=== PATIENT | female | born 1960 | race Caucasian/White ===

== ENCOUNTER 2019-10-05 18:54 | Emergency (ER) | payer MEDICARE, OTHER, SELFPAY ==
[2019-10-05] VITALS (7 sets, daily range): BP systolic 120–193; BP diastolic 72–146; PULSE 65–100; RESP 16–20; TEMP 35.7–37.1; O2SAT 95–99; BMI 37.8
[2019-10-05 19:25] LABS: Basophils # 0.1 10^3/uL (0.0-0.1); Basophils % 0.5 %; Eosinophils # 0.1 10^3/uL (0.0-0.8); Eosinophils % 0.8 %; Hemoglobin 15.4 g/dL (11.5-15.3); Lymphocytes # 1.9 10^3/uL (0.8-4.8); Lymphocytes % 19.4 %; Mean Corpuscular HGB Conc 33.5 g/dL (30.0-36.0); Mean Corpuscular Hemoglobin 35.6 pg (28.0-34.0); Mean Corpuscular Volume 106.2 fL (81-99); Mean Platelet Volume 9.4 fL (7.4-10.4); Monocytes # 0.6 10^3/uL (0.2-0.9); Monocytes % 6.2 %; Neutrophils # 7.1 10^3/uL (1.8-7.7); Neutrophils % 72.7 %; Nucleated Red Blood Cells % 0 %; Platelet Count 229 10^3/cmm (130-400); Red Blood Count 4.33 10^6/uL (4.1-5.3); Red Cell Distribution Width 12.8 % (12.1-15.1); White Blood Count 9.8 10^3/uL (4.0-10.0)
[2019-10-05 19:40] LABS: Alanine Aminotransferase 30 U/L (0-33); Albumin Level 3.9 g/dL (3.5-5.2); Alkaline Phosphatase 210 IU/L (35-105); Anion Gap 15.7 (5-19); Aspartate Amino Transferase 38 U/L (0-32); Blood Urea Nitrogen 14 mg/dL (8-23); Calcium 8.7 mg/dL (8.5-10.5); Carbon Dioxide 25 mmol/L (22-29); Chloride 97 mmol/L (98-107); Globulin 3.1 g/dL (1.3-4.6); Glucose 129 mg/dL (65-115); Lipase 263 U/L (13-60); Osmolality Calculated 276 mOsm/kg (285-295); Potassium 3.7 mmol/L (3.5-5.1); Sodium 134 mmol/L (136-145); Total Bilirubin 0.9 mg/dL (0.15-1.2)
--- NOTE | 2019-10-05 20:07 | CTR_ITS ---
PROCEDURE INFORMATION: Exam: CT Abdomen And Pelvis With Contrast Exam date and time: 10/05/2019 9:16 PM Age: 58 years old Clinical indication: Nausea and other: Diarrhea; Abdominal pain; Prior surgery; Surgery type: Appy, gb, hysto, ; Additional info: Pain, elevated lipase TECHNIQUE: Imaging protocol: Computed tomography of the abdomen and pelvis with intravenous contrast. Radiation optimization: All CT scans at this facility use at least one of these dose optimization techniques: automated exposure control; mA and/or kV adjustment per patient size (includes targeted exams where dose is matched to clinical indication); or iterative reconstruction. Contrast material: OMNI 300; Contrast volume: 95 ml; Contrast route: IV; COMPARISON: No relevant prior studies available. RADIATION DOSE METRICS: Total DLP: 1601.58 mGy-cm FINDINGS: Liver: There is no focal abnormality within the liver. There is a diffuse decrease in hepatic parenchymal density, consistent with mild fatty infiltration. Gallbladder and bile ducts: There has been a cholecystectomy. Pancreas: There is edema involving the head of the pancreas and there is some peripancreatic fluid around the pancreatic head consistent with focal pancreatitis. There is a collection of air in fluid inferior to the pancreatic head and adjacent to the duodenal C loop, most likely a duodenal diverticulum Spleen: The spleen is normal. Adrenals: The adrenal glands are normal. Kidneys and ureters: The kidneys are normal. There is no evidence of renal or ureteral calcifications. There is no evidence of hydronephrosis. Stomach and bowel: There is no evidence of colitis/diverticulitis. Appendix: Not identified Intraperitoneal space: There is no evidence of free intraperitoneal fluid. Vasculature: Unremarkable. No abdominal aortic aneurysm. Lymph nodes: Unremarkable. No enlarged lymph nodes. Bladder: Unremarkable as visualized. Reproductive: There has been a hysterectomy. Bones/joints: The lumbar spine demonstrates mild degenerative changes at multiple levels. There is mild compression deformity of T12 which appears represent old osteoporotic compression fracture. There is S shaped scoliosis of the lumbar spine. Soft tissues: Unremarkable. CT/CT abdomen pelvis w con* [id number] IMPRESSION: 1. Acute pancreatitis 2. Duodenal diverticulum 3. Fatty liver Radiation Dose CTDIVOL = (mGy): DLP = 1601.58 (mGy-cm)
--- NOTE | 2019-10-05 20:42 | W.ED.ABDPA2 ---
HPI - Abdominal Pain General: Chief Complaint: Abdominal Pain Stated Complaint: abd pain Time Seen by Provider: 10/05/19 20:35 History of Present Illness: HPI narrative: Patient complains about abdominal pain since January she is scheduled see Dr. Linton and get a EGD done and a colonoscopy. She complains about upper epigastric pain that radiates to the right upper side she has had her gallbladder removed Dr. Linton was thinking maybe she possibly has an ulcer patient that she is had pain today and has been nauseous has not take any medication MD elicited complaint: abdominal pain Onset (ago): month(s) Pain Consistency: intermittent Location: Epigastric Severity: moderate Quality: stabbing Radiation: RUQ Exacerbating factors: nothing Relieving factors: nothing Associated Symptoms: Reports heartburn and nausea; Denies chills and fever(s) Review of Systems Const: Denies: fever(s), chills or body aches Eyes: Denies: change in vision or blurry vision ENMT: Denies: throat pain or nasal congestion Card: Denies: chest pain or dyspnea on exertion Resp: Denies: dyspnea, productive cough or non-productive cough GI: Reports: abdominal pain, nausea and heartburn Musc: Denies: extremity pain Skin/Breast: Denies: rash Neuro: Denies: headache(s) Psych: Denies: anxiety or depression Jasbir/Lymph: Denies: easy bruising PFSH ED PFSH: Social History Smoking and tobacco status: current every day smoker Physical Exam Const: COMMON NORMALS: no acute distress, average body habitus and patient oriented x3 HENMT: COMMON NORMALS: normocephalic HEAD & SCALP: normal to inspection and normocephalic FACE & SINUS: normal facial exam Eye: COMMON NORMALS: conjunctivae normal GENERAL EYE: appearance normal, both eyes and all related structures CONJUNCTIVA: Yes conjunctivae normal Neck/C-Spine: COMMON NORMALS: no JVD Chest: COMMONS NORMALS: normal inspection of the chest Resp: COMMON NORMALS: normal respiratory effort and clear to auscultation bilaterally AUSCULTATION: clear to auscultation bilaterally Cardio: COMMON NORMALS: no JVD, regular rate and regular rhythm RATE: regular rate RHYTHM: regular rhythm GI: COMMON NORMALS: Normal to inspection, nondistended, normoactive bowel sounds present PALPATION: Yes Tenderness to palpation present (GI) Details: other (Epigastric) Extremity: COMMON NORMALS: normal to inspection and full ROM Neuro: COMMON NORMALS: patient oriented x3 Course Vital Signs: Vital signs: Vital Signs Temperature 96.3 F L 10/05/19 18:56 Pulse Rate 100 10/05/19 18:56 Respiratory Rate 18 10/05/19 18:56 Blood Pressure 152/100 10/05/19 18:56 Pulse Oximetry 95 10/05/19 18:56 MDM - Abdominal Pain Lab Data: Labs: Lab Results 10/05/19 10/05/19 Range/Units 19:18 19:18 WBC 9.8 (4.0-10.0) 10^3/ uL RBC 4.33 (4.1-5.3) 10^6/u L Hgb 15.4 H (11.5-15.3) g/dL Hct 46.0 (37.0-47.0) % MCV 106.2 H (81-99) fL MCH 35.6 H (28.0-34.0) pg MCHC 33.5 (30.0-36.0) g/dL RDW 12.8 (12.1-15.1) % Plt Count 229 (130-400) 10^3/c mm MPV 9.4 (7.4-10.4) fL Neut % (Auto) 72.7 % Lymph % (Auto) 19.4 % [place] % (Auto) 6.2 % Eos % (Auto) 0.8 % Baso % (Auto) 0.5 % Neut # (Auto) 7.1 (1.8-7.7) 10^3/u L Lymph # (Auto) 1.9 (0.8-4.8) 10^3/u L [place] # (Auto) 0.6 (0.2-0.9) 10^3/u L Eos # (Auto) 0.1 (0.0-0.8) 10^3/u L Baso # (Auto) 0.1 (0.0-0.1) 10^3/u L Nucleated RBC % (a uto) 0 % Nucleated RBCs # 0.0 /100WBC Sodium 134 L (136-145) mmol/L Potassium 3.7 (3.5-5.1) mmol/L Chloride 97 L (98-107) mmol/L Carbon Dioxide 25 (22-29) mmol/L Anion Gap 15.7 (5-19) BUN 14 (8-23) mg/dL Creatinine 0.6 (0.5-0.9) mg/dL GFR Calculation 102.0 (90-130) mL/min Glucose 129 H (65-115) mg/dL Calculated Osmolal ity 276 L (285-295) mOsm/k g Calcium 8.7 (8.5-10.5) mg/dL Total Bilirubin 0.9 (0.15-1.2) mg/dL AST 38 H (0-32) U/L ALT 30 (0-33) U/L Alkaline Phosphata se 210 H (35-105) IU/L Total Protein 7.0 (6.6-8.7) g/dL Albumin 3.9 (3.5-5.2) g/dL Globulin 3.1 (1.3-4.6) g/dL Lipase 263 H (13-60) U/L Coding Level of Care Code ED Section Housekeeper for Chg Juan Carlos
[2019-10-05] MEDS: lidocaine 2% viscous 15 ML, aluminum-mag hydrox-simethicon 30 ML, sucralfate oral liq 1 GM PO (20:55)
[2019-10-05] MEDS: ondansetron 4 MG Tablet PO (20:55)
--- NOTE | 2019-10-05 21:07 | PC.NURSE ---
Pt. ambulatory to bathroom without assist. Gait stable
[2019-10-05] MEDS: morphine 4 mg/mL SDV 1 mL IM (21:33)
[2019-10-05] MEDS: iohexol 300 mg/mL 100 mL Btl IV (22:20)
[2019-10-05 22:32] LABS: Bilirubin Urine Neg (NEGATIVE); Blood Urine Neg (Negative); Glucose Urine UA Norm (Normal); Ketones Urine Negative (Negative); Leukocyte Esterase Urine Negative (Negative); Mucus Urine 3+; Nitrate Urine Negative (Negative); Protein Urine Neg (Negative); RBC Urine 0-4 /hpf (0-2); Urine Appearance Cloudy (CLEAR); Urine Color Yellow (Yellow); Urobilinogen Urine Norm (Negative); pH Urine 5 (5-7)
[2019-10-05 22:33] LABS: Bacteria Urine 1+
[2019-10-05] MEDS: metoprolol tartrate 1 mg/1 mL SDV 5 mL 5 MG IV (23:41)
[2019-10-05] MEDS: morphine 4 mg/mL SDV 1 mL IVP (23:42)
--- NOTE | 2019-10-06 00:22 | PC.NURSE ---
IV removed intact. Pressure dressing in place.
[2019-10-06 00:23] VITALS: BP 198/133; PULSE 60; RESP 17; O2SAT 95
== END 2019-10-06 00:24 | disposition home or self-care (01) ==
PROVIDERS: Emergency Medicine; Emergency Provider Nurse Practitioner Family; PCP Family Medicine
DX: R10.9 Unspecified abdominal pain (principal); F17.210 Nicotine dependence, cigarettes, uncomplicated
CPT/HCPCS: 12345; 36415; 74177; 80053; 81001; 83690; 85025; 96374; 96375; 99283; 99284; A9270; J2270; J3490; Q0162; Q9967

== ENCOUNTER 2020-02-02 15:06 | Emergency (ER) | payer MEDICARE, OTHER, SELFPAY ==
[2020-02-02 15:12] VITALS: PULSE 104; RESP 18; TEMP 36.4; O2SAT 99; BMI 36.6
[2020-02-02 16:22] LABS: Alanine Aminotransferase 93 U/L (0-33); Albumin Level 3.7 g/dL (3.5-5.2); Alkaline Phosphatase 130 IU/L (35-105); Anion Gap 15.5 (5-19); Aspartate Amino Transferase 73 U/L (0-32); Blood Urea Nitrogen 17 mg/dL (8-23); Calcium 9.5 mg/dL (8.5-10.5); Carbon Dioxide 27 mmol/L (22-29); Chloride 94 mmol/L (98-107); Globulin 3.5 g/dL (1.3-4.6); Glomerular Filtration Rate 50.5 mL/min (90-130); Glucose 126 mg/dL (65-115); Lipase 130 U/L (13-60); Osmolality Calculated 279 mOsm/kg (285-295); Potassium 3.5 mmol/L (3.5-5.1); Sodium 133 mmol/L (136-145); Total Protein 7.2 g/dL (6.6-8.7)
[2020-02-02 16:24] LABS: Creatinine Clr Calc Pharmacy 60.5927
--- NOTE | 2020-02-02 16:32 | CTR_ITS ---
PROCEDURE INFORMATION: Exam: CT Abdomen And Pelvis With Contrast Exam date and time: 02/02/2020 5:02 PM Age: 59 years old Clinical indication: Nausea and vomiting and other: Diarrhea; Abdominal pain; Prior surgery; Surgery type: Appy, gb, , hyst; Additional info: Abd pain TECHNIQUE: Imaging protocol: Computed tomography of the abdomen and pelvis with intravenous contrast. Radiation optimization: All CT scans at this facility use at least one of these dose optimization techniques: automated exposure control; mA and/or kV adjustment per patient size (includes targeted exams where dose is matched to clinical indication); or iterative reconstruction. Contrast material: VISI 320; Contrast volume: 95 ml; Contrast route: INTRAVENOUS (IV); COMPARISON: CT abdomen pelvis w con* [id number] 10/05/2019 10:11 PM RADIATION DOSE METRICS: Total DLP (mGy-cm): 1332.26 FINDINGS: Liver: Normal. No mass. Gallbladder and bile ducts: Cholecystectomy. Mild prominence of the bile ducts is most likely reservoir effect. Pancreas: Normal. No ductal dilation. Spleen: Normal. No splenomegaly. Adrenals: Normal. No mass. Kidneys and ureters: Normal. No hydronephrosis. Stomach and bowel: Duodenal diverticulum. Remainder of the small bowel and colon and stomach are unremarkable. Appendix: The appendix is absent. Intraperitoneal space: Unremarkable. No free air. No significant fluid collection. Vasculature: Unremarkable. No abdominal aortic aneurysm. Lymph nodes: Unremarkable. No enlarged lymph nodes. Urinary bladder: Unremarkable as visualized. Reproductive: The uterus and ovaries are absent. Bones/joints: Scoliosis and degenerative changes. Mild T12 compression fracture is unchanged. No acute fracture. Soft tissues: Unremarkable. CT/CT abdomen pelvis w con* [id number] IMPRESSION: 1. No acute abnormality identified in the abdomen or pelvis. Radiation Dose CTDIVOL = (mGy): DLP = 1332.26 (mGy-cm)
--- NOTE | 2020-02-02 16:43 | W.ED.ABDPA2 ---
HPI - Abdominal Pain General: Chief Complaint: Abdominal Pain Stated Complaint: Stomach pain Time Seen by Provider: 02/02/20 16:06 Source: patient Mode of arrival: ambulatory Limitations: no limitations History of Present Illness: HPI narrative: 59-year-old female states she has been having right sided abdominal pain over the last 2 days. She states that sharp in nature and rates it a 6 out of 10. States she does have a history of pancreatitis and this feels similar. She had some nausea no vomiting. Denies any fevers. Denies any diarrhea. Denies any worsening or improving factors. MD elicited complaint: abdominal pain Associated Symptoms: Reports nausea; Denies chills, dysuria and fever(s) Review of Systems Const: Denies: fever(s), chills, body aches or change in appetite Eyes: Denies: blurry vision or eye discomfort ENMT: Denies: throat pain or dental pain Card: Denies: chest pain Resp: Denies: dyspnea GI: Reports: abdominal pain and nausea : Denies: dysuria Musc: Denies: neck pain or back pain Skin/Breast: Denies: rash Neuro: Denies: headache(s) Psych: Denies: depression Jasbir/Lymph: Denies: easy bruising All/Imm: Denies: urticaria PFSH ED PFSH: Social History Smoking and tobacco status: current every day smoker Physical Exam Const: COMMON NORMALS: no acute distress, patient oriented x3 and healthy appearing HENMT: COMMON NORMALS: normocephalic and atraumatic HEAD & SCALP: normocephalic and atraumatic Eye: COMMON NORMALS: Equal, round and reactive pupils present and EOMs intact bilaterally PUPIL: Yes Equal, round and reactive pupils present Neck/C-Spine: COMMON NORMALS: full ROM and supple Chest: COMMONS NORMALS: normal inspection of the chest and normal palpation of entire chest wall Resp: COMMON NORMALS: normal respiratory effort, No retractions, No use of accessory muscles and clear to auscultation bilaterally AUSCULTATION: clear to auscultation bilaterally Cardio: COMMON NORMALS: regular rate, regular rhythm and No murmurs present (Cardio) RATE: regular rate RHYTHM: regular rhythm GI: COMMON NORMALS: Normal to inspection, nondistended, normoactive bowel sounds present, Soft to palpation and no masses PALPATION: Yes Soft to palpation OTHER: mild diffuse tenderness Extremity: COMMON NORMALS: normal to inspection and full ROM Neuro: COMMON NORMALS: patient oriented x3, moves all extremities and no focal motor deficits Psych: COMMON NORMALS: mental status grossly normal, Normal thought process present and cooperative THOUGHT PROCESS: Normal thought process present Skin: COMMON NORMALS: no rashes or lesions noted and no wounds GENERAL SKIN EXAM: no rashes or lesions noted Course Vital Signs: Vital signs: Vital Signs Temperature 97.6 F 02/02/20 15:12 Pulse Rate 89 02/02/20 18:45 Respiratory Rate 18 02/02/20 18:45 Blood Pressure 138/75 02/02/20 18:45 Pulse Oximetry 99 02/02/20 18:45 MDM - Abdominal Pain MDM Narrative: Medical decision making narrative: 59-year-old female presented here with abdominal pain. Patient's blood work and CT abdomen are all normal. She is well-appearing here and pain is improved. She has no signs of acute surgical abdomen. Patient is to follow-up with her PCP in 2 to 4 days and return if worsening. She understands and agrees to plan. Lab Data: Labs: Lab Results 02/02/20 02/02/20 02/02/20 Range/Units 15:42 15:42 16:45 WBC 8.7 (4.0-10.0) 10^3/ uL RBC 4.49 (4.1-5.3) 10^6/u L Hgb 15.8 H (11.5-15.3) g/dL Hct 47.8 H (37.0-47.0) % MCV 106.5 H (81-99) fL MCH 35.2 H (28.0-34.0) pg MCHC 33.1 (30.0-36.0) g/dL RDW 12.9 (12.1-15.1) % Plt Count 256 (130-400) 10^3/c mm MPV 10.3 (7.4-10.4) fL Neut % (Auto) 57.4 % Lymph % (Auto) 32.3 % [place] % (Auto) 8.1 % Eos % (Auto) 1.4 % Baso % (Auto) 0.5 % Neut # (Auto) 4.97 (1.8-7.7) 10^3/u L Lymph # (Auto) 2.8 (0.8-4.8) 10^3/u L [place] # (Auto) 0.7 (0.2-0.9) 10^3/u L Eos # (Auto) 0.1 (0.0-0.8) 10^3/u L Baso # (Auto) 0.0 (0.0-0.1) 10^3/u L Nucleated RBC % (a uto) 0 % Nucleated RBCs # 0.0 /100WBC Sodium 133 L (136-145) mmol/L Potassium 3.5 (3.5-5.1) mmol/L Chloride 94 L (98-107) mmol/L Carbon Dioxide 27 (22-29) mmol/L Anion Gap 15.5 (5-19) BUN 17 (8-23) mg/dL Creatinine 1.1 H (0.5-0.9) mg/dL GFR Calculation 50.5 L (90-130) mL/min Glucose 126 H (65-115) mg/dL Calculated Osmolal ity 279 L (285-295) mOsm/k g Calcium 9.5 (8.5-10.5) mg/dL Total Bilirubin 1.0 (0.15-1.2) mg/dL AST 73 H (0-32) U/L ALT 93 H (0-33) U/L Alkaline Phosphata se 130 H (35-105) IU/L Total Protein 7.2 (6.6-8.7) g/dL Albumin 3.7 (3.5-5.2) g/dL Globulin 3.5 (1.3-4.6) g/dL Lipase 130 H (13-60) U/L Urine Color Yellow (Yellow) Urine Appearance Cloudy (CLEAR) Urine pH 5 (5-7) Ur Specific Gravit y 1.025 (1.005-1.030) Urine Protein 1+ H (Negative) Urine Glucose (UA) Norm (Normal) Urine Ketones 1+ H (Negative) Urine Blood Neg (Negative) Urine Nitrate Negative (Negative) Urine Bilirubin 2+ H (Negative) Urine Urobilinogen 8 H (Negative) mg/dL Ur Leukocyte Tanisha ase Trace H (Negative) Urine RBC 0-4 H (0-2) /hpf Urine WBC 0-4 H (0-5) /hpf Ur Squamous Epith Cells 25-40 H (0-5) /hpf Amorphous Sediment 1+ /hpf Urine Bacteria 1+ H (NONE) /hpf Hyaline Casts >100 H /lpf Fine Granular Cast s 0-4 H /lpf Coarse Granular Ca sts 0-4 H /lpf Imaging Data ^: CT Abd/Pel: Radiologist's impression: [id number] Order #: [id number] Report Status: Finalized Reason: [place] [address] CT Scan Report Signed Patient: Lissett Beck Unit #: [id number] : 1960 Age/Sex: 59 / F ADM Date: 02/02/20 Loc: ER Room/Bed: Attending Dr: Ordering Provider/Ordering MD: Mario Swanson MD Date of Service: 02/02/20 Procedure(s): CT abdomen pelvis w con* [id number] Accession Number(s): [id number] Report Number: [id number] PROCEDURE INFORMATION: Exam: CT Abdomen And Pelvis With Contrast Exam date and time: 02/02/2020 5:02 PM Age: 59 years old Clinical indication: Nausea and vomiting and other: Diarrhea; Abdominal pain; Prior surgery; Surgery type: Appy, gb, , hyst; Additional info: Abd pain TECHNIQUE: Imaging protocol: Computed tomography of the abdomen and pelvis with intravenous contrast. Radiation optimization: All CT scans at this facility use at least one of these dose optimization techniques: automated exposure control; mA and/or kV adjustment per patient size (includes targeted exams where dose is matched to clinical indication); or iterative reconstruction. Contrast material: VISI 320; Contrast volume: 95 ml; Contrast route: INTRAVENOUS (IV); COMPARISON: CT abdomen pelvis w con* [id number] 10/05/2019 10:11 PM RADIATION DOSE METRICS: Total DLP (mGy-cm): 1332.26 FINDINGS: Liver: Normal. No mass. Gallbladder and bile ducts: Cholecystectomy. Mild prominence of the bile ducts is most likely reservoir effect. Pancreas: Normal. No ductal dilation. Spleen: Normal. No splenomegaly. Adrenals: Normal. No mass. Kidneys and ureters: Normal. No hydronephrosis. Stomach and bowel: Duodenal diverticulum. Remainder of the small bowel and colon and stomach are unremarkable. Appendix: The appendix is absent. Intraperitoneal space: Unremarkable. No free air. No significant fluid collection. Vasculature: Unremarkable. No abdominal aortic aneurysm. Lymph nodes: Unremarkable. No enlarged lymph nodes. Urinary bladder: Unremarkable as visualized. Reproductive: The uterus and ovaries are absent. Bones/joints: Scoliosis and degenerative changes. Mild T12 compression fracture is unchanged. No acute fracture. Soft tissues: Unremarkable. CT/CT abdomen pelvis w con* [id number] IMPRESSION: 1. No acute abnormality identified in the abdomen or pelvis. Discharge Plan Discharge Patient Disposition: Home Clinical Impression: Abdominal pain Qualifiers: Abdominal location: generalized Qualified Code(s): R10.84 - Generalized abdominal pain Condition: Stable Prescriptions: New Zofran 4 mg tablet 4 mg PO QID PRN (Reason: nausea and vomiting) Qty: 14 RF: 0 dicyclomine 20 mg tablet 20 mg PO TID PRN (Reason: abdominal pain) Qty: 20 RF: 0 No Action lisinopril 20 mg tablet 20 mg PO DAILY RF: 0 hydrocodone-acetaminophen 10-325 mg tablet 1 tab PO Q4H PRN (Reason: Pain) RF: 0 duloxetine 60 mg capsule,delayed release(DR/EC) 60 mg PO DAILY RF: 0 cetirizine 10 mg Tablet 10 mg PO DAILY RF: 0 Ventolin HFA 90 mcg/actuation HFA aerosol inhaler 1 puff INHALATION Q6H PRN (Reason: Shortness Of Breath) RF: 0 Nurtec ODT 75 mg tablet,disintegrating 75 mg PO DAILY PRN (Reason: Migraine Headache) RF: 0 Discharge Orders: Discharge Order (Routine); Ordered 02/02/20 Ordered By: Mario Swanson Referrals: Lissa Sung DO [Primary Care Provider] - 1-3 days Discharge Diet: Advance as tolerated Discharge Activity: Resume usual activity Patient Instructions: Abdominal Pain (ED) Coding Level of Care Code ED Child Specialist for Chg Fwd Exam Comprehensive
[2020-02-02 16:52] LABS: Basophils % 0.5 %; Eosinophils # 0.1 10^3/uL (0.0-0.8); Eosinophils % 1.4 %; Hematocrit 47.8 % (37.0-47.0); Hemoglobin 15.8 g/dL (11.5-15.3); Lymphocytes # 2.8 10^3/uL (0.8-4.8); Lymphocytes % 32.3 %; Mean Corpuscular HGB Conc 33.1 g/dL (30.0-36.0); Mean Corpuscular Hemoglobin 35.2 pg (28.0-34.0); Mean Corpuscular Volume 106.5 fL (81-99); Mean Platelet Volume 10.3 fL (7.4-10.4); Monocytes # 0.7 10^3/uL (0.2-0.9); Monocytes % 8.1 %; Neutrophils # 4.97 10^3/uL (1.8-7.7); Neutrophils % 57.4 %; Nucleated Red Blood Cells % 0 %; Platelet Count 256 10^3/cmm (130-400); Red Blood Count 4.49 10^6/uL (4.1-5.3); Red Cell Distribution Width 12.9 % (12.1-15.1); White Blood Count 8.7 10^3/uL (4.0-10.0)
[2020-02-02] MEDS: sodium chloride 0.9% 1,000 ML 999 ML IV (17:11)
[2020-02-02] MEDS: ondansetron 2 mg/ML SDV 2 mL 4 MG IVP (17:12)
[2020-02-02 17:13] VITALS: RESP 18
[2020-02-02] MEDS: morphine 4 mg/mL SDV 1 mL IVP (17:13)
[2020-02-02 17:14] LABS: Urine Color Yellow (Yellow)
[2020-02-02 17:15] LABS: Blood Urine Neg (Negative); Glucose Urine UA Norm (Normal); Ketones Urine 1+ (Negative); Nitrate Urine Negative (Negative); Protein Urine 1+ (Negative); Specific Gravity, Urine 1.025 (1.005-1.030); Urine Appearance Cloudy (CLEAR); pH Urine 5 (5-7)
[2020-02-02 17:16] LABS: Add Urine Microscopic? YES; Bilirubin Urine 2+ (Negative); Leukocyte Esterase Urine Trace (Negative); Urobilinogen Urine 8 mg/dL (Negative)
[2020-02-02 17:20] LABS: Coarse Granular Casts Urine 0-4 /lpf; Fine Granular Casts Urine 0-4 /lpf; Hyaline Casts Urine >100 /lpf; RBC Urine 0-4 /hpf (0-2)
[2020-02-02 17:21] LABS: Add Urine Culture? No; Amorphous Sediment Urine 1+ /hpf; Bacteria Urine 1+ /hpf; Squamous Epithelial Cell Urine 25-40 /hpf (0-5); WBC Urine 0-4 /hpf (0-5)
[2020-02-02 18:00] VITALS: BP 160/75
[2020-02-02] MEDS: iodixanol 320 mg/mL 100mL Btl IV (18:06)
[2020-02-02 18:43] VITALS: RESP 18; O2SAT 98
[2020-02-02] MEDS: HYDROmorphone 1 mg/mL INJ 1 mL IVP (18:43)
[2020-02-02 18:45] VITALS: BP 138/75; PULSE 89; RESP 18; O2SAT 99
[2020-02-02 20:16] VITALS: BP 139/85; PULSE 102; RESP 20; O2SAT 97
== END 2020-02-02 20:17 | disposition home or self-care (01) ==
PROVIDERS: Emergency Provider Emergency Medicine; PCP Family Medicine
DX: R10.84 Generalized abdominal pain (principal); F17.210 Nicotine dependence, cigarettes, uncomplicated
CPT/HCPCS: 12345; 36415; 74177; 80053; 81001; 83690; 85025; 96361; 96374; 96375; 99283; J1170; J2270; J2405; J7030; Q9967

== ENCOUNTER → 2020-09-19 13:52 | Outpatient (BNVA) | payer MEDICARE, OTHER, SELFPAY | PROVIDERS: PCP Family Medicine; Visit Provider Family Medicine | DX: J41.0 Simple chronic bronchitis (principal); I10 Essential (primary) hypertension; R00.0 Tachycardia, unspecified; M51.36 Other intervertebral disc degeneration, lumbar region; G89.4 Chronic pain syndrome; F51.01 Primary insomnia | CPT/HCPCS: 80053; 80061; 83735; 84443 ==

== ENCOUNTER 2020-11-03 15:44 | Outpatient (CLI) | payer MEDICARE, OTHER, SELFPAY ==
--- NOTE | 2020-11-03 16:00 | MR_ITS ---
WS: [id number] MRI THORACIC SPINE noncontrast. HISTORY: THORACIC SPONDYLOSIS COMPARISON: CT abdomen 02/02/2020 TECHNIQUE: Multiplanar sequences are performed in sagittal and axial planes. Posterior thoracic alignment is normal. There is a small amount of marrow edema along the inferior an terior T11 endplate in the anterior and LEFT lateral T12 vertebral body. T12 compression fracture of 20% was also present on 02/02/2020. No new fractures. Signal within the cord is normal. There is no co rd enlargement or atrophy. Mild disc space desiccation throughout. T1-2: Normal. T2-3: Normal. T3-4: Mild bilateral facet joint arthritis. No stenosis. T4-5: Mild facet arthritis. No high-grade stenosis. T5-6: Mild bilateral facet arthritis. No stenosis. T6-7: Mild facet arthritis bilaterally. No stenosis. T7-8: Mild bilateral facet joint arthritis. No stenosis. T8-9: Moderate bilateral facet joint arthritis. Mild bilateral foraminal narrowing, LEFT greater janell n RIGHT. T9-10: Moderate bilateral facet joint arthritis. Mild bilateral foraminal stenosis. T10-11: Moderate bilateral facet joint arthritis causing mild to moderate stenosis of the foramina. There is encroachment into the posterior lateral thecal sac, greatest on the RIGHT by osteophyte dise ase. T11-12: Mild bilateral facet joint arthritis. No stenosis. Paravertebral soft tissues are normal. MR/MR thoracic spin wo con* [id number] IMPRESSION: 1. No high-grade stenosis. 2. Chronic T12 compression fracture by 20%. Noted on the prior CT of 02/02/2020 . 3. Facet joint arthritis throughout the thoracic spine. Most significant at T1 0-11. Mild to moderate foraminal narrowing at T10-11.
--- NOTE | 2020-11-03 16:00 | MR_ITS ---
WS: [id number] MRI CERVICAL SPINE NONCONTRAST HISTORY: CERVICALGIA COMPARISON: 04/22/2012 Technique: Multiplanar, multisequence noncontrast imaging of the cervical spine. Very slight straightening of the normal cervical lordosis. Very slight RIGHT curvature of the cervica l spine. No acute marrow edema or fractures. Very mild degenerative disc disease and vertebral body osteophytosis throughout the cervical spine. M inimal progression since the prior study. Craniocervical junction, C1 and C2 relationship, odontoid process and soft tissues are normal. C2-C3: LEFT lateral bony protrusion from the C2 vertebral body causes slight displacement of the C2 I II nerve root but no significant stenosis. C3-C4: Mild osteophytic ridging. Mild foraminal narrowing. C4-C5: Mild osteophytic ridging without significant stenosis. C5-C6: Diffuse mild osteophytic ridging and disc bulging. No significant facet arthritis. Very slight foraminal narrowing. C6-C7: Mild osteophytic ridging and disc bulging. Very mild foraminal narrowing. Tiny central disc pr otrusion. C7-T1: Mild osteophytic ridging. No stenosis. Paraspinal soft tissue are normal. MR/MR cervical spin wo con* [id number] IMPRESSION: 1. No high-grade central or foraminal stenosis or disc protrusions. 2. Mild foraminal narrowing predominantly due to vertebral body osteophytes. M ild progression of disease since the prior examination of 04/22/2012.
== END 2020-11-03 15:45 | disposition home or self-care (01) ==
LOC: RADSHAW 15:53
PROVIDERS: PCP Family Medicine; Visit Provider Nurse Practitioner
DX: M51.36 Other intervertebral disc degeneration, lumbar region (principal); G89.4 Chronic pain syndrome; M54.41 Lumbago with sciatica, right side; S22.089A Unspecified fracture of T11-T12 vertebra, initial encounter for closed fracture; M47.814 Spondylosis without myelopathy or radiculopathy, thoracic region; M54.2 Cervicalgia; X58.XXXA Exposure to other specified factors, initial encounter
CPT/HCPCS: 72141; 72146

== ENCOUNTER 2020-11-28 14:40 | Outpatient (CLI) | payer MEDICARE, OTHER, SELFPAY ==
--- NOTE | 2020-11-28 14:45 | MR_ITS ---
WS: [id number] MRI THORACIC SPINE noncontrast. HISTORY: THORACIC SPONDYLOSIS; CHRONIC LITTLE THORACIC BACK PAIN COMPARISON: 11/03/2020 TECHNIQUE: Multiplanar sequences are performed in sagittal and axial planes. Posterior thoracic alignment is normal. Mild disc space narrowing and desiccation, most significant a t T10-11 and T11-12 with endplate osteophytes. No cord compression. Small amount of increased marrow edema along the inferior anterior endplate of T11 and the anterior T12 vertebral body. Mild stable co mpression deformity of T12. Compression by 20% is subacute. No retropulsion of the vertebral body. No focal disc protrusions. Multilevel mild to moderate facet joint arthritis. Mild bilateral foramin al narrowing at T10-11 and T11-12. Nerve root sleeve diverticulum in the RIGHT T11-12 foramen. MR/MR thoracic spin wo con* [id number] IMPRESSION: 1. No change in appearance of the MRI thoracic spine since 11/03/2020. 2. Subacute 20% T12 compression fracture with no retropulsion. 3. Mild to moderate multilevel facet joint arthritis with no high-grade centra l stenosis.
== END 2020-11-28 14:41 | disposition home or self-care (01) ==
LOC: RADSHAW 14:44
PROVIDERS: PCP Family Medicine; Visit Provider Nurse Practitioner
DX: M47.814 Spondylosis without myelopathy or radiculopathy, thoracic region (principal); M54.6 Pain in thoracic spine; S22.088A Other fracture of T11-T12 vertebra, initial encounter for closed fracture; X58.XXXA Exposure to other specified factors, initial encounter
CPT/HCPCS: 72146

== ENCOUNTER → 2020-12-07 14:55 | Outpatient (BNVA) | payer MEDICARE, OTHER, SELFPAY | PROVIDERS: PCP Family Medicine; Visit Provider Specialist | DX: G43.711 Chronic migraine without aura, intractable, with status migrainosus (principal); J41.0 Simple chronic bronchitis; F17.210 Nicotine dependence, cigarettes, uncomplicated | CPT/HCPCS: 99204 ==

== ENCOUNTER → 2021-02-15 15:06 | Outpatient (BNVA) | payer MEDICARE, OTHER, SELFPAY | PROVIDERS: PCP Family Medicine; Visit Provider Specialist | DX: G43.711 Chronic migraine without aura, intractable, with status migrainosus (principal) | CPT/HCPCS: 64615; J0585 ==

== ENCOUNTER → 2021-05-10 13:48 | Outpatient (BNVA) | payer MEDICARE, OTHER, SELFPAY | PROVIDERS: PCP Family Medicine; Visit Provider Specialist | DX: G43.709 Chronic migraine without aura, not intractable, without status migrainosus (principal); J41.0 Simple chronic bronchitis; F17.210 Nicotine dependence, cigarettes, uncomplicated | CPT/HCPCS: 64615; 99212; J0585 ==

== ENCOUNTER → 2021-08-02 14:12 | Outpatient (BNVA) | payer MEDICARE, SELFPAY | PROVIDERS: PCP Family Medicine; Visit Provider Specialist | DX: G43.711 Chronic migraine without aura, intractable, with status migrainosus (principal); J41.0 Simple chronic bronchitis; F17.210 Nicotine dependence, cigarettes, uncomplicated | CPT/HCPCS: 64615; J0585 ==

== ENCOUNTER → 2021-10-24 14:58 | Outpatient (BNVA) | payer MEDICARE, SELFPAY | PROVIDERS: PCP Family Medicine; Visit Provider Family Medicine | DX: R53.83 Other fatigue (principal); Z13.29 Encounter for screening for other suspected endocrine disorder; Z83.49 Family history of other endocrine, nutritional and metabolic diseases; I10 Essential (primary) hypertension; Z13.220 Encounter for screening for lipoid disorders; Z13.6 Encounter for screening for cardiovascular disorders; R73.9 Hyperglycemia, unspecified; Z13.1 Encounter for screening for diabetes mellitus; G43.709 Chronic migraine without aura, not intractable, without status migrainosus; G89.4 Chronic pain syndrome; F51.01 Primary insomnia; F33.1 Major depressive disorder, recurrent, moderate | CPT/HCPCS: 80053; 80061; 83036; 84443 ==

== ENCOUNTER → 2021-10-25 14:07 | Outpatient (BNVA) | payer MEDICARE, SELFPAY | PROVIDERS: PCP Family Medicine; Visit Provider Specialist | DX: F17.210 Nicotine dependence, cigarettes, uncomplicated (principal); G43.711 Chronic migraine without aura, intractable, with status migrainosus | CPT/HCPCS: 64615; J0585 ==

== ENCOUNTER → 2022-04-16 13:54 | Outpatient (BNVA) | payer MEDICARE, SELFPAY | PROVIDERS: PCP Family Medicine; Visit Provider Family Medicine | DX: I10 Essential (primary) hypertension (principal); G43.709 Chronic migraine without aura, not intractable, without status migrainosus; G89.4 Chronic pain syndrome; F51.01 Primary insomnia; F33.1 Major depressive disorder, recurrent, moderate; J41.0 Simple chronic bronchitis; R53.83 Other fatigue; Z83.49 Family history of other endocrine, nutritional and metabolic diseases; M51.36 Other intervertebral disc degeneration, lumbar region | CPT/HCPCS: 80053; 84439; 84443; 84481; 85025; 86376 ==

== ENCOUNTER → 2022-04-26 13:41 | Outpatient (BNVA) | payer MEDICARE, SELFPAY | PROVIDERS: PCP Family Medicine; Visit Provider Emergency Medicine | DX: R68.89 Other general symptoms and signs (principal); J00 Acute nasopharyngitis [common cold]; J40 Bronchitis, not specified as acute or chronic | CPT/HCPCS: 87400; 87426 ==

== ENCOUNTER → 2022-12-16 13:54 | Outpatient (BNVA) | payer MEDICARE, SELFPAY | PROVIDERS: PCP Family Medicine; Visit Provider Family Medicine | DX: F33.1 Major depressive disorder, recurrent, moderate (principal); I10 Essential (primary) hypertension; J44.1 Chronic obstructive pulmonary disease with (acute) exacerbation; R49.9 Unspecified voice and resonance disorder; Z72.0 Tobacco use | CPT/HCPCS: 71046 ==

== ENCOUNTER → 2023-01-23 14:37 | Outpatient (BNVA) | payer MEDICARE, SELFPAY | PROVIDERS: PCP Family Medicine; Visit Provider Family Medicine | DX: I10 Essential (primary) hypertension (principal); Z83.49 Family history of other endocrine, nutritional and metabolic diseases; K27.9 Peptic ulcer, site unspecified, unspecified as acute or chronic, without hemorrhage or perforation; R10.11 Right upper quadrant pain; R49.9 Unspecified voice and resonance disorder; Z72.0 Tobacco use; Z13.220 Encounter for screening for lipoid disorders; Z13.6 Encounter for screening for cardiovascular disorders | CPT/HCPCS: 80053; 80061; 84439; 84443; 84481; 85025 ==

== ENCOUNTER 2023-03-04 08:41 | Outpatient (CLI) | payer MEDICARE, SELFPAY ==
--- NOTE | 2023-03-04 08:55 | CT_ITS ---
WS: [id number] CT NECK TECHNIQUE: Contrast-enhanced CT of the neck with coronal and sagittal reformatted images. CLINICAL INFORMATION: DYSPHAGIA COMPARISON: None. DLP: 196.[address] scans at [facility] use at least one of these dose optimization techniques: automated e xposure control; mA and/or kV adjustment per patient size (includes targeted exams where dose is matc hed to clinical indication); or iterative reconstruction. FINDINGS: Enlarged heterogeneous RIGHT thyroid lobe with lower pole nodule measuring 2.3 x 1.9 cm. This can be followed up with ultrasound. RIGHT to LEFT mass effect on the trachea with minimal narrowing. No hig h-grade airway narrowing. Paranasal sinuses are well aerated. Mastoid air cells are well aerated. Parotid glands are normal. No rmal submandibular glands. Normal posterior nasopharynx and parapharyngeal fat. A few prominent subm andibular and cervical chain lymph nodes not pathologically enlarged. Small polypoid central low-attenuation lesion in the LEFT vallecula. This measures 5 mm. Normal pirif orm sinuses. Normal glottis and subglottic airway. Straightening of the normal cervical lordosis. Mild carotid bulb calcification. Retropharyngeal cours e of both cervical ICAs. IMPRESSION: 1. Enlarged heterogeneous RIGHT thyroid lobe with lower pole nodule measuring 2.3 x 1.9 cm. This can be followed up with ultrasound. RIGHT to LEFT mass effect on the trachea with minimal narrowing. 2. 5 mm polypoid lesion in the LEFT vallecula with central low-attenuation. This could be further ev aluated with endoscopy. 3. No pathologic lymphadenopathy.
--- NOTE | 2023-03-04 08:55 | CT_ITS ---
WS: [id number] CT CHEST TECHNIQUE: Contrast enhanced CT of the chest with coronal and sagittal reformatted images. CLINICAL INFORMATION: DYSPHAGIA COMPARISON: None. DLP: 600.[address] scans at [facility] use at least one of these dose optimization techniques: automated e xposure control; mA and/or kV adjustment per patient size (includes targeted exams where dose is matc hed to clinical indication); or iterative reconstruction. FINDINGS: Lungs are well aerated. No acute pulmonary infiltrates. No focal pneumonia or pleural fluid. No suspi cious pulmonary parenchymal opacities. Slightly ectatic ascending aorta measuring 3.5 cm. Mild aortic calcification. Normal caliber descending thoracic aorta. Coronary calcification. Adrenal glands are normal. Hepatomegaly. Diffuse fatty infiltration of the liver. Cholecystectomy cli ps. Normal portal vein and splenic vein. Normal GE junction. A few small lymph nodes at the GE juncti on. No axillary lymphadenopathy. Mild thoracic curve. Mild thoracic kyphosis. Chronic anterior wedging in the lower thoracic spine. Enlarged heterogeneous RIGHT thyroid lobe with lower pole nodule measuring 2.3 x 1.9 cm. This can be followed up with ultrasound. Mild RIGHT to LEFT mass effect on the trachea at the thoracic inlet. IMPRESSION: 1. Enlarged heterogeneous RIGHT thyroid lobe with lower pole nodule measuring 2.3 x 1.9 cm. This can be followed up with ultrasound. 2. No other suspicious findings.
[2023-03-04] MEDS: iohexol 350 mg/mL 500 mL Btl (per mL) IV ×2 (09:17→09:18)
== END 2023-03-04 08:42 | disposition home or self-care (01) ==
LOC: RAD 08:41
PROVIDERS: PCP Family Medicine; Visit Provider Specialist
DX: R13.10 Dysphagia, unspecified (principal); E04.9 Nontoxic goiter, unspecified; J33.8 Other polyp of sinus
CPT/HCPCS: 70491; 71260; Q9967

== ENCOUNTER 2023-04-07 08:01 | Outpatient (CLI) | payer MEDICARE, SELFPAY ==
--- NOTE | 2023-04-07 08:07 | FL_ITS ---
WS: [id number] Exam: FL barium swallow [id number] Date/Time of Exam: 04/07/2023 8:15 AM Reason For Exam: DYSPHAGIA Fluoroscopy time: Oropharyngeal phase of swallowing was normal. There is minimal extrinsic compression along the staff development manager ior cervical esophagus at the C4-5 level that may be due to ligamentous thickening and mild anterior spondylosis. No intrinsic esophageal mass or stricture was noted otherwise. Motility was normal. No a spiration was seen. The esophagus is not displaced. The GE junction appears normal. IMPRESSION: 1. Minimal extrinsic compression along the posterior cervical esophagus at the C4-5 level that might be due to ligamentous thickening and/or mild anterior spondylosis. 2. No intrinsic esophageal mass or stricture was identified. Motility was normal. No aspiration or re flux identified. Minutes # of spot films:
== END 2023-04-07 08:02 | disposition home or self-care (01) ==
LOC: RAD 08:01
PROVIDERS: PCP Family Medicine; Visit Provider Specialist
DX: R13.10 Dysphagia, unspecified (principal)
CPT/HCPCS: 74220

== ENCOUNTER 2023-08-05 13:45 | Outpatient (CLI) | payer MEDICARE, SELFPAY ==
[2023-08-05 14:12] VITALS: PULSE 83; RESP 18; O2SAT 97
[2023-08-05] MEDS: albuterol 2.5 mg/3 mL Neb INHALATION (14:12)
[2023-08-05 14:16] VITALS: PULSE 81
--- NOTE | 2023-08-05 14:45 | CT_ITS ---
WS: [id number] LDCT LUNG CANCER SCREENING HISTORY: F17.210 - Nicotine dependence, cigarettes, uncomplicated TECHNIQUE: Axial imaging performed from the apices to 1 cm below the costophrenic angles. Coronal and sagittal reformats are submitted with axial MIP series. All CT scans at [facility] use at least one of these dose optimization techniques: automated exposure control; mA and/or kV adjustment per patient size (includes targeted exams where dose is matched to clinical indication); or iterativ e reconstruction. DLP: 101.91 mGy.cm DIvol: Mean CTDIvol: 2.30 (mGy) COMPARISON: 03/04/2023 Diagnostic quality: Satisfactory Lungs: Mild emphysema. There is an area of mild pleural thickening and nodularity in the lingula michele g the fissure. This appears slightly more prominent as compared to 03/04/2023. There is encasement of fat also. The nodular component measures approximately 1.4 x 0.7 cm. No additional mass or nodule. Heart: Normal size heart with no pericardial effusion.. Other findings: RIGHT thyroid enlargement extends substernal. Nodules previously described on neck CT of 03/04/2023. Atherosclerosis aorta. Normal size pulmonary artery. Moderate coronary artery calcific ations. No adenopathy. Prior cholecystectomy. IMPRESSION: CT/CT lung screening [id number] LUNG-RADS: 4A-Probably Suspicious FOLLOW UP: 3 Month LDCT OTHER FINDINGS (S MODIFIER): None.
== END 2023-08-05 13:46 | disposition home or self-care (01) ==
PROVIDERS: PCP Family Medicine; Visit Provider Specialist
DX: F17.210 Nicotine dependence, cigarettes, uncomplicated (principal)
CPT/HCPCS: 71271; 94060; J7613

== ENCOUNTER → 2023-09-01 10:10 | Outpatient (BNVA) | payer MEDICARE, SELFPAY | PROVIDERS: PCP Family Medicine; Visit Provider Family Medicine | DX: M54.12 Radiculopathy, cervical region (principal); M25.512 Pain in left shoulder | CPT/HCPCS: 72040; 73030 ==

== ENCOUNTER 2023-12-17 14:34 | Outpatient (CLI) | payer MEDICARE, SELFPAY ==
--- NOTE | 2023-12-17 14:40 | XR_ITS ---
WS: [id number] RIGHT KNEE: 3 VIEW(S) TECHNIQUE: AP, oblique(s) and lateral. HISTORY: M17.11 - Unilateral primary osteoarthritis, right knee COMPARISON: 11/02/2013 Orthopedic screw femoral metaphysis is probably from an ACL repair. There does appear to be an ACL tu nnel present. No change in position of the hardware since 11/02/2013. Mild narrowing of the medial compartment with small marginal osteophytes. Small suprapatellar effusion. No soft tissue abnormality. XR/XR knee RT 3V* [id number] IMPRESSION: 1. No fracture. 2. Mild medial compartment joint space narrowing. 3. Prior ACL repair.
== END 2023-12-17 14:35 | disposition home or self-care (01) ==
LOC: RAD 14:35
PROVIDERS: PCP Family Medicine; Visit Provider Family Medicine
DX: M17.11 Unilateral primary osteoarthritis, right knee (principal)
CPT/HCPCS: 73562

== ENCOUNTER 2024-02-23 07:48 | Emergency (ER) | payer MEDICARE, SELFPAY ==
[2024-02-23 08:23] VITALS: BP 160/109; PULSE 88; RESP 16; TEMP 36.6; O2SAT 97; BMI 39.4
[2024-02-23 08:27] VITALS: BP 160/109; PULSE 88; RESP 16; TEMP 36.6; O2SAT 97
--- NOTE | 2024-02-23 08:43 | ED_ITS ---
HPI - Abdominal Pain 2 General: Chief Complaint: Abdominal Pain Stated Complaint: abd pain Time Seen by Provider: 02/23/24 07:55 History of Present Illness: 63-year-old female presents emergency ro om complaining of right upper quadrant abdominal pain began 2 days ago. She has previously had a cholecystectomy. She has nausea and pain but no vomiting. No diarrhea no constipation. No shortness of breath or cough. No hematochezia melena hematemesis coffee-ground emesis Associated Symptoms: Reports nausea; Denies chills, dysuria, fever(s), hematochezia, hematemesis, melena and vomiting Related Data Home Medications Medication Instructions Recorded Confirmed pantoprazole 40 mg tablet,delayed 40 mg PO DAILY 02/23/24 02/23/24 release Previous Rx's Medication Instructions Recorded hydroxyzine HCl 25 mg tablet 25 mg PO .at bedtime PRN insomnia 06/23/23 #90 tabs albuterol sulfate 90 mcg/actuation 1 puff inhalation Q6H PRN 09/01/23 aerosol inhaler Shortness Of Breath #8.5 grams duloxetine 20 mg capsule,delayed 40 mg (2 x 20 mg) PO BID 3 days 11/29/23 release #12 caps lisinopril 20 mg tablet 20 mg PO DAILY 90 days #90 tabs 01/15/24 metoprolol succinate 100 mg 100 mg PO DAILY 90 days #90 tabs 01/26/24 tablet,extended release 24 hr Allergies Allergy/AdvReac Type Severity Reaction Status Date / Time propranolol Allergy tachycardia, Verified 12/25/23 10:13 SOB, sleepiness, lethargy sulfamethoxazole Allergy ALGY-Hives Verified 12/25/23 10:13 [From Bactrim] trimethoprim [From Bactrim] Allergy ALGY-Hives Verified 12/25/23 10:13 sertraline [From Zoloft] AdvReac Mild ADR-diarrhe Verified 12/25/23 10:13 a aspirin AdvReac ADR-NAUSEA Verified 12/25/23 10:13 Review of Systems 2 Const: Denies: fever(s) or chills Card: Denies: chest pain Resp: Denies: dyspnea GI: Reports: abdominal pain and nausea; Denies: vomiting, hematemesis, hematochezia or melena : Denies: dysuria, urinary frequency or urinary urgency Musc: Denies: neck pain or back pain Skin/Breast: Denies: rash PFSH ED 2 PFSH: Medical History Chronic sinus infection Lumbar degenerative disc disease COPD (chronic obstructive pulmonary disease) ANGELITA (obstructive sleep apnea) Insomnia Depression Chronic migraine Hypertension Surgical History H/O knee surgery H/O: hysterectomy H/O section S/P tonsillectomy and adenoidectomy S/P appendectomy Family History Other CAD (coronary artery disease) Cancer Familial hypercholesterolemia Hypertension Thyroid disease Denies family history of Diabetes Stroke Social History Smoking and tobacco/nicotine status: current every day tobacco/nicotine user cigarettes Packs smoked per day: 0.5 Alcohol intake: never Substance/Drug Use: never Current gender identity: Female Female Reproductive History: Spontaneous abortions: No Physical Exam 2 Const: COMMON NORMALS: no acute distress GENERAL APPEARANCE: cooperative and comfortable ORIENTATION/CONSCIOUSNESS: Yes awake, Yes oriented to person, Yes oriented to place and Yes oriented to time HENMT: COMMON NORMALS: normocephalic, atraumatic and hearing grossly normal bilaterally HEAD & SCALP: normocephalic and atraumatic Resp: COMMON NORMALS: normal respiratory effort, No retractions, No use of accessory muscles and clear to auscultation bilaterally AUSCULTATION: clear to auscultation bilaterally Cardio: COMMON NORMALS: regular rate, regular rhythm and No murmurs present (Cardio) RATE: regular rate RHYTHM: regular rhythm GI: COMMON NORMALS: Soft to palpation and No hepatosplenomegaly present A USCULTATION: Yes normoactive bowel sounds PALPATION: Yes Soft to palpation, No Tenderness to palpation present (GI), No Guarding due to palpation present (GI) and Yes No hepatosplenomegaly present Extremity: COMMON NORMALS: normal to inspection, capillary refill normal, no clubbing, cyanosis or edema, no calf tenderness and no pedal edema Neuro: SENSORIUM/ORIENTATION: Yes oriented to person, Yes oriented to place and Yes oriented to time Skin: COMMON NORMALS: no rashes or lesions noted GENERAL SKIN EXAM: no rashes or lesions noted Course 2 Vital Signs: Vital signs: Vital Signs Temperature 97.8 F 02/23/24 08:27 Pulse Rate 62 02/23/24 12:08 Respiratory Rate 18 02/23/24 11:02 Blood Pressure 130/70 02/23/24 12:08 Pulse Oximetry 95 02/23/24 12:08 Oxygen Delivery Me thod Room Air 02/23/24 11:02 MDM - Abdominal Pain Medical Decision Making Duodenal diverticuli unchanged. Patient also reported that she previously had has had H. pylori in the past. Will have patient increase pantoprazole to 40 mg twice a day and refer her to general surgery for possible EGD. Medical Records I reviewed the patient's medical records. Lab Data I reviewed the patient's lab results. 02/23/24 08:27 02/23/24 08:27 Labs/Radiology: Radiology Impressions Abdomen/Pelvis CT 02/23/24 09:13 IMPRESSION: 1. Prior appendectomy. 2. No acute inflammatory process in the RIGHT lower quadrant. 3. No renal obstruction. 4. Minimal sigmoid diverticulosis without acute diverticulitis. 5. Prior hysterectomy and cholecystectomy. 6. Large duodenal diverticulum measures 4.6 x 3.2 cm. Similar to 02/02/2020. Laboratory Results WBC 8.79 10^3/uL (3.29-11.43) 02/23/24 08:27 RBC 5.03 10^6/uL (3.85-5.65) 02/23/24 08:27 Hgb 17.50 g/dL (11.27-16.99) H 02/23/24 08:27 Hct 52.4 % (36-47) H 02/23/24 08:27 MCV 104.2 fl (85-98) H 02/23/24 08:27 MCH 34.8 pg (27-33) H 02/23/24 08:27 MCHC 33.4 g/dL (30-55) 02/23/24 08:27 RDW 12.3 % (12.1-15.1) 02/23/24 08:27 Plt Count 224 10^3/cmm (157-399) 02/23/24 08:27 MPV 10.2 fL (7.4-10.4) 02/23/24 08:27 Neut % (Auto) 53.6 % 02/23/24 08: Lymph % (Auto) 38.3 % 02/23/24 08:27 Saline % (Auto) 5.6 % 02/23/24 08:27 Eos % (Auto) 1.5 % 02/23/24 08:27 Baso % (Auto) 0.7 % 02/23/24 08:27 Neut # (Auto) 4.71 10^3/uL (1.8-7.7) 02/23/24 08:27 Lymph # (Auto) 3.4 10^3/uL (0.8-4.8) 02/23/24 08: Saline # (Auto) 0.5 10^3/uL (0.2-0.9) 02/23/24 08:27 Eos # (Auto) 0.1 10^3/uL (0.0-0.8) 02/23/24 08: Baso # (Auto) 0.1 10^3/uL (0.0-0.1) 02/23/24 08:27 Nucleated RBC % (auto) 0 % 02/23/24 08: Nucleated RBCs # 0.0 /100WBC 02/23/24 08:27 Sodium 135 mmol/L (136-145) L 02/23/24 08:27 Potassium 4.2 mmol/L (3.5-5.1) 02/23/24 08:27 Chloride 97 mmol/L (98-107) L 02/23/24 08:27 Carbon Dioxide 26 mmol/L (22-29) 02/23/24 08:27 Anion Gap 16.2 (5-19) 02/23/24 08:27 BUN 15 mg/dL (8-23) 02/23/24 08:27 Creatinine 0.8 mg/dL (0.5-0.9) 02/23/24 08:27 GFR Calculation 72.0 mL/min (90-130) L 02/23/24 08:27 Glucose 126 mg/dL (65-115) H 02/23/24 08:27 Calculated Osmolality 282 mOsm/kg (285-295) L 02/23/24 08:27 Calcium 9.0 mg/dL (8.5-10.5) 02/23/24 08:27 Total Bilirubin 0.7 mg/dL (0.15-1.2) 02/23/24 08:27 AST 26 U/L (0-32) 02/23/24 08:27 ALT 23 U/L (0-33) 02/23/24 08:27 Alkaline Phosphatase 123 U/L (35-105) H 02/23/24 08:27 Total Protein 7.7 g/dL (6.6-8.7) 02/23/24 08:27 Albumin 4.1 g/dL (3.5-5.2) 02/23/24 08:27 Globulin 3.6 g/dL (1.3-4.6) 02/23/24 08:27 Lipase 53 U/L (13-60) 02/23/24 08:27 Urine Color Dark yellow (Yellow) A 02/23/24 08:49 Urine Appearance Clear (CLEAR) 02/23/24 08:49 Urine pH 5.5 (5-7) 02/23/24 08:49 Ur Specific [place] 1.034 (1.005-1.030) H 02/23/24 08:49 Urine Protein 1+ (Negative) A 02/23/24 08:49 Urine Glucose (UA) Negative (Normal) 02/23/24 08:49 Urine Ketones Trace (Negative) 02/23/24 08:49 Urine Blood Negative (Negative) 02/23/24 08:49 Urine Nitrate Negative (Negative) 02/23/24 08:49 Urine Bilirubin 1+ (Negative) H 02/23/24 08:49 Urine Urobilinogen 1.0 mg/dL (Negative) 02/23/24 08:49 Ur Leukocyte Esterase Negative (Negative) 02/23/24 08:49 Urine RBC None /hpf (0-2) 02/23/24 08:49 Urine WBC None /hpf (0-5) 02/23/24 08:49 Ur Squamous Epith Cells 0-4 /hpf (0-5) H 02/23/24 08:49 Amorphous Sediment Not Reportable 02/23/24 08:49 Urine Bacteria Trace /hpf (NONE) 02/23/24 08:49 Hyaline Casts 0-4 /lpf H 02/23/24 08:49 All radiology interpretation(s) finalized by discharge Discharge Plan Discharge Patient Disposition: Home Clinical Impression: Abdominal pain, Duodenal diverticulum Condition: Stable Prescriptions: No Action hydroxyzine HCl 25 mg tablet 25 mg PO .at bedtime PRN (Reason: insomnia) Qty: 90 1RF albuterol sulfate 90 mcg/actuation HFA aerosol inhaler 1 puff INHALATION Q6H PRN (Reason: Shortness Of Breath) Qty: 8.5 5RF Rx Instructions: may adjust brand per cost duloxetine 20 mg capsule,delayed release(DR/EC) 40 mg PO BID 3 Days Qty: 12 0RF lisinopril 20 mg tablet 20 mg PO DAILY 90 Days Qty: 90 2RF metoprolol succinate 100 mg tablet extended release 24 hr 100 mg PO DAILY 90 Days Qty: 90 2RF pantoprazole 40 mg tablet,delayed release (DR/EC) 40 mg PO DAILY Discharge Orders: Discharge ED (Routine); Ordered 02/23/24 Ordered By: Topher Bowles Referrals: Janie Dunne MD [Primary Care Provider] - Patient Instructions: Abdominal Pain (ED), Opioid Safety, Pain Management Activity Restrictions/Additional Instructions: Thank you for choosing [facility] for your healthcare needs today. It is very important that you follow up as instructed or that you return to the Emergency Department should you have concerns or if your condition changes or worsens in any way. You were seen in the emergency room with complaints of abdominal pain. CT of the abdomen showed a duodenal diverticulum which was seen several years ago does not appear to have changed. Suspect this may be the source of your discomfort. Your white count was normal. Your hemoglobin is somewhat elevated suspect you may have sleep apnea you should have this evaluated by your primary care doctor. You remained your labs did not show anything clinically significant. Recommend you increase your pantoprazole to 40 mg twice a day and we will set you up for follow-up with general surgery for EGD Coding Level of Care Code ED Booth Manager for Duane Rangel
[2024-02-23 08:49] LABS: Basophils # 0.1 10^3/uL (0.0-0.1); Basophils % 0.7 %; Eosinophils # 0.1 10^3/uL (0.0-0.8); Eosinophils % 1.5 %; Hematocrit 52.4 % (36-47); Lymphocytes # 3.4 10^3/uL (0.8-4.8); Lymphocytes % 38.3 %; Mean Corpuscular HGB Conc 33.4 g/dL (30-55); Mean Corpuscular Hemoglobin 34.8 pg (27-33); Mean Corpuscular Volume 104.2 fl (85-98); Mean Platelet Volume 10.2 fL (7.4-10.4); Monocytes # 0.5 10^3/uL (0.2-0.9); Monocytes % 5.6 %; Neutrophils # 4.71 10^3/uL (1.8-7.7); Neutrophils % 53.6 %; Nucleated Red Blood Cells % 0 %; Platelet Count 224 10^3/cmm (157-399); Red Blood Count 5.03 10^6/uL (3.85-5.65); Red Cell Distribution Width 12.3 % (12.1-15.1); White Blood Count 8.79 10^3/uL (3.29-11.43)
--- NOTE | 2024-02-23 09:13 | CT_ITS ---
WS: [id number] CT ABDOMEN AND PELVIS NONCONTRAST HISTORY: Abdominal pain TECHNIQUE: Imaging performed through the abdomen and pelvis. Coronal and sagittal reformats are submi tted. All CT scans at [facility] use at least one of these dose optimization techniques: auto mated exposure control; mA and/or kV adjustment per patient size (includes targeted exams where dose is matched to clinical indication); or iterative reconstruction. DLP: 1053.73 mGy.cm COMPARISON: 02/02/2020 Lower thorax: Lung bases are clear. Visualized heart is normal. No hiatal hernia. Liver: Normal size liver. No mass or bile duct dilatation. Gallbladder: Prior cholecystectomy. Pancreas: Normal size and attenuation. Normal pancreatic duct. No pancreatitis or mass. Spleen: Normal. Adrenal glands: Normal. No mass. Right kidney: Normal size kidney with no mass or hydronephrosis. Left kidney: Normal size kidney with no mass or hydronephrosis. Mild perinephric stranding. Aorta: Mild atherosclerosis abdominal aorta with no aneurysm. No free fluid, intraperitoneal air or significant lymphadenopathy. GI tract: Nondistended stomach. Large duodenal diverticulum. No small bowel obstruction. Prior append ectomy. No wall thickening and no colitis. A few scattered diverticula in the sigmoid colon without a cute diverticulitis. Abdominal wall: Negative. No hernia. Pelvis: Prior hysterectomy. No adenopathy or free fluid. Osseous structures: Increase in the lumbar lordosis. Mild anterior wedging of the T12 is stable since 02/02/2020. CT/CT abdomen pelvis wo con [id number] IMPRESSION: 1. Prior appendectomy. 2. No acute inflammatory process in the RIGHT lower quadrant. 3. No renal obstruction. 4. Minimal sigmoid diverticulosis without acute diverticulitis. 5. Prior hysterectomy and cholecystectomy. 6. Large duodenal diverticulum measures 4.6 x 3.2 cm. Similar to 02/02/2020.
[2024-02-23 09:17] LABS: Alanine Aminotransferase 23 U/L (0-33); Albumin Level 4.1 g/dL (3.5-5.2); Alkaline Phosphatase 123 U/L (35-105); Aspartate Amino Transferase 26 U/L (0-32); Blood Urea Nitrogen 15 mg/dL (8-23); Carbon Dioxide 26 mmol/L (22-29); Chloride 97 mmol/L (98-107); Creatinine Clr Calc Pharmacy 82.5102; Globulin 3.6 g/dL (1.3-4.6); Glucose 126 mg/dL (65-115); Lipase 53 U/L (13-60); Osmolality Calculated 282 mOsm/kg (285-295); Sodium 135 mmol/L (136-145); Total Bilirubin 0.7 mg/dL (0.15-1.2); Total Protein 7.7 g/dL (6.6-8.7)
[2024-02-23 09:19] LABS: Bilirubin Urine 1+ (Negative); Blood Urine Negative (Negative); Glucose Urine UA Negative (Normal); Ketones Urine Trace (Negative); Leukocyte Esterase Urine Negative (Negative); Nitrate Urine Negative (Negative); Protein Urine 1+ (Negative); Urine Appearance Clear (CLEAR); Urine Color Dark Yellow (Yellow); pH Urine 5.5 (5-7)
[2024-02-23 09:23] LABS: Anion Gap 16.2 (5-19); Potassium 4.2 mmol/L (3.5-5.1)
[2024-02-23] MEDS: ondansetron 2 mg/ML SDV 2 mL 4 MG IM (09:28)
[2024-02-23] MEDS: ketorolac 30 mg/mL INJ IM (09:28)
[2024-02-23 09:29] VITALS: BP 145/99; PULSE 77; RESP 18; O2SAT 95
[2024-02-23 09:52] LABS: Add Urine Microscopic? YES; Bacteria Urine TRACE /hpf; Hyaline Casts Urine 0-4 /lpf; Specific Gravity, Urine 1.034 (1.005-1.030); Squamous Epithelial Cell Urine 0-4 /hpf (0-5); UA Manual Slide Review YES
[2024-02-23 11:02] VITALS: BP 139/70; PULSE 62; RESP 18; O2SAT 95
[2024-02-23 12:08] VITALS: BP 130/70; PULSE 62; O2SAT 95
--- NOTE | 2024-02-24 08:42 | DCPLANNER ---
Message sent to General surgery for referral
== END 2024-02-23 11:30 | disposition home or self-care (01) ==
PROVIDERS: Emergency Provider Family Medicine; PCP Family Medicine
DX: K57.10 Diverticulosis of small intestine without perforation or abscess without bleeding (principal); Z90.49 Acquired absence of other specified parts of digestive tract
CPT/HCPCS: 36415; 74176; 80053; 81001; 83690; 85025; 96372; 99284; J1885; J2405

== ENCOUNTER → 2024-03-10 13:08 | Outpatient (BNVA) | payer MEDICARE, SELFPAY | PROVIDERS: PCP Family Medicine; Referring Provider Family Medicine; Visit Provider Surgery | DX: R19.7 Diarrhea, unspecified (principal); K21.9 Gastro-esophageal reflux disease without esophagitis; R10.11 Right upper quadrant pain | CPT/HCPCS: 99204 ==

== ENCOUNTER → 2024-05-06 12:15 | Outpatient (BNVA) | payer MEDICARE, SELFPAY | PROVIDERS: PCP Family Medicine; Visit Provider Family Medicine | DX: R19.7 Diarrhea, unspecified (principal); R10.9 Unspecified abdominal pain | CPT/HCPCS: 83630; 83993 ==

== ENCOUNTER 2024-05-11 10:45 | Day surgery (SDC) | payer MEDICARE, SELFPAY ==
[2024-05-11 11:00] VITALS: BP 123/83; PULSE 84; RESP 18; TEMP 36.4; O2SAT 95; BMI 39.4
--- NOTE | 2024-05-11 11:05 | ANES.PREANE2 ---
Pre-Anesthetic Assessment Height/Weight: Height 1.63 m Weight 104.326 kg Temp Pulse Resp BP Pulse Ox O2 Del Method 97.6 F 84 18 123/83 95 Room Air 05/11/24 11:00 05/11/24 11:00 05/11/24 11:00 05/11/24 11:00 05/11/24 11:00 05/11/24 11:00 Operation Date: 05/11/24 11:55 Proposed Procedures p EGD 91801, K21.9(Not Applicable) - Salvador Morgan MD Familial anesthetic complications: None Was Beta Rina taken within 24 hours: Yes Was Clonidine taken within 24 hours: N/A Last intake: Intake Last Liquid Date 05/10/24 Last Liquid Time 00:00 Last Solid Date 05/10/24 Last Solid Time 11:30 Social Alcohol (couple beers a few times a week) and Tobacco 0.5 pack(s) per day 40 pack years Exam alert, oriented x 3, clear to auscultation bilaterally and regular rate & rhythm Airway Submandibular: within normal limits Cervical ROM: within normal limits Mallampati: Class III Dentition: full History/ROS No significant history except as noted and No significant complaints Pulmonary Chronic Obstructive Pulmonary Disease, Cough, Exertional Dyspnea and Sleep Apnea (No CPAP) CV/HEM Coronary Artery Disease and Hypertension None reported Hepatic None reported Hx polyps GI Gastroesophageal Reflux Disease (Controlled with meds, no issues this morning) and Peptic Ulcer Disease Metabolic Hyperlipidemia and Morbid Obesity Thyroid nodule Musc/skel Lower Back Pain and Osteoarthritis/DJD Neuropsych Depression and Headache (Migraines) Anesthetic Plan ASA status: 3 Anesthesia: Anesthesia Evaluation, General and MAC Risk of > 500 ml blood loss (7ml/kg in children): No Medications/Allergies Home Medications Medication Instructions Recorded Confirmed Last Taken Type lisinopril 20 mg tablet 20 mg PO DAILY 90 days #90 tabs 01/15/24 05/06/24 05/11/24 08:00 Rx metoprolol succinate 100 mg 100 mg PO DAILY 90 days #90 tabs 01/26/24 05/06/24 05/11/24 08:00 Rx tablet,extended release 24 hr albuterol sulfate 90 mcg/actuation 1 puff inhalation Q6H PRN 02/25/24 05/06/24 05/06/24 Rx aerosol inhaler Shortness Of Breath #8.5 grams duloxetine 20 mg capsule,delayed 40 mg (2 x 20 mg) PO BID 90 days 02/25/24 05/06/24 05/06/24 Rx release #360 caps hydroxyzine HCl 25 mg tablet 25 mg PO .at bedtime PRN insomnia 02/25/24 05/06/24 05/05/24 Rx #90 tabs pantoprazole 40 mg tablet,delayed 40 mg PO DAILY 90 days #90 tabs 02/25/24 05/06/24 05/06/24 Rx release multivitamin 1 tab PO DAILY 05/06/24 05/06/24 Unknown History Allergies Allergy/AdvReac Type Severity Reaction Status Date / Time propranolol Allergy tachycardia, Verified 05/11/24 11:06 SOB, sleepiness, lethargy sulfamethoxazole Allergy ALGY-Hives Verified 05/11/24 11:06 [From Bactrim] trimethoprim [From Bactrim] Allergy ALGY-Hives Verified 05/11/24 11:06 sertraline [From Zoloft] AdvReac Mild ADR-diarrhe Verified 05/11/24 11:06 a aspirin AdvReac ADR-NAUSEA Verified 05/11/24 11:06 [facility] Anesthesia Medical History Chronic sinus infection Lumbar degenerative disc disease COPD (chronic obstructive pulmonary disease) ANGELITA (obstructive sleep apnea) Insomnia Depression Chronic migraine Hypertension Surgical History H/O knee surgery H/O: hysterectomy H/O section S/P tonsillectomy and adenoidectomy S/P appendectomy Family History Other CAD (coronary artery disease) Cancer Familial hypercholesterolemia Hypertension Thyroid disease Denies family history of Diabetes Stroke Social History Smoking and tobacco/nicotine status: current every day tobacco/nicotine user cigarettes Packs smoked per day: 0.5 Alcohol intake: never Substance/Drug Use: never Current gender identity: Female Female Reproductive History Spontaneous abortions: No Data Anesthesia Cardiac Studies: No Data to Display
[2024-05-11] MEDS: sodium chloride 0.9% 500 ML 15 ML IV (11:10)
--- NOTE | 2024-05-11 11:42 | W.PM.OPSFHP ---
Same Day Surgery H&P Indication for Procedure/HPI DATE OF PROCEDURE: May 11, 2024 CHIEF COMPLAINT/INDICATIONFOR SURGICAL PROCEDURE: reflux PREOP DIAGNOSIS: reflux PLANNED PROCEDURE: Operation Date: 05/11/24 11:55 Proposed Procedures p EGD 05141, K21.9(Not Applicable) - Salvador Morgan MD Medications/Allergies* Home Medications Medication Instructions Recorded Confirmed Type multivitamin 1 tab PO DAILY 05/06/24 05/06/24 History Allergies/Adverse Reactions Allergy/AdvReac Type Severity Reaction Status Date / Time propranolol Allergy tachycardia, Verified 05/11/24 11:06 SOB, sleepiness, lethargy sulfamethoxazole Allergy ALGY-Hives Verified 05/11/24 11:06 [From Bactrim] trimethoprim [From Bactrim] Allergy ALGY-Hives Verified 05/11/24 11:06 sertraline [From Zoloft] AdvReac Mild ADR-diarrhe Verified 05/11/24 11:06 a aspirin AdvReac ADR-NAUSEA Verified 05/11/24 11:06 Current Medications: Generic Name Dose Route Start Last Admin Trade Name Freq PRN Reason Stop Dose Admin Sodium Chloride 500 mls @ 15 mls/hr 05/11/24 10:53 05/11/24 11:10 Sodium Chloride 0.9% IV 05/12/24 10:52 15 mls/hr .Q24H PRN Administration COLONOSCOPY FLUIDS Pertinent History/Comorbid Conditions* Medical History (Updated 03/02/24 @ 00:00 by MARIAM Talamantes) Chronic sinus infection Lumbar degenerative disc disease COPD (chronic obstructive pulmonary disease) ANGELITA (obstructive sleep apnea) Insomnia Depression Chronic migraine Hypertension Surgical History (Updated 03/01/20 @ 14:37 by Janie Dunne MD) H/O knee surgery H/O: hysterectomy H/O section S/P tonsillectomy and adenoidectomy S/P appendectomy Family History (Updated 02/22/20 @ 17:40 by Amy Gallardo LPN) Familial hypercholesterolemia CAD (coronary artery disease) Cancer Hypertension Thyroid disease Denies family history of Diabetes Stroke Social History Smoking and tobacco/nicotine status: current every day tobacco/nicotine user cigarettes Packs smoked per day: 0.5 Alcohol intake: never Substance/Drug Use: never Current gender identity: Female Pertinent Exam Findings alert, oriented x 3, clear to auscultation bilaterally and regular rate & rhythm Recommendations Surgery/Procedure today Coding Level of Care Code Acute Code for Chg Fwd
[2024-05-11 12:38] VITALS: BP 97/77; PULSE 76; RESP 16; TEMP 36.4; O2SAT 94
[2024-05-11 12:56] VITALS: BP 103/75; PULSE 76; RESP 16; O2SAT 96
[2024-05-11 13:02] VITALS: BP 125/76; PULSE 76; RESP 18; O2SAT 97
== END 2024-05-11 13:15 | disposition home or self-care (01) ==
PROVIDERS: PCP Family Medicine; Visit Provider Surgery
PROC: 0DJ08ZZ Inspection of Upper Intestinal Tract, Via Natural or Artificial Opening Endoscopic (ICD-10-PCS; principal; 2024-05-11 11:55)
DX: K21.00 Gastro-esophageal reflux disease with esophagitis, without bleeding (principal); K29.50 Unspecified chronic gastritis without bleeding; J44.9 Chronic obstructive pulmonary disease, unspecified; G47.33 Obstructive sleep apnea (adult) (pediatric); I10 Essential (primary) hypertension; F17.210 Nicotine dependence, cigarettes, uncomplicated; I25.10 Atherosclerotic heart disease of native coronary artery without angina pectoris; Z87.11 Personal history of peptic ulcer disease; K44.9 Diaphragmatic hernia without obstruction or gangrene
CPT/HCPCS: 43239; 88305; 88342; J2704; J7040

== ENCOUNTER 2024-07-16 06:10 | Emergency (ER) | payer MEDICARE, SELFPAY ==
--- NOTE | 2024-07-16 06:00 | ECG_ITS ---
[employer] Test Date: 2024-07-16 Pat Name: Lissett Beck Department: Room: Gender: Female General Office Worker: : 1960 Requested By: Topher Flores Order Number: [id number] Makenna MD: Louis Rivas M.D. Measurements Intervals [place] Rate: 106 P: 81 LA: 159 QRS: -39 QRSD: 82 T: 94 QT: 324 QTc: 430 Interpretive Statements SINUS TACHYCARDIA POSSIBLE LEFT ATRIAL ENLARGEMENT [-0.1mV P-WAVE IN V1/V2] LEFT AXIS DEVIATION [QRS AXIS < -30] LOW QRS VOLTAGE IN PRECORDIAL LEADS [QRS DEFLECTION < 1.0 mV IN CHEST LEADS] ANTEROSEPTAL MYOCARDIAL INFARCTION , PROBABLY OLD [40+ ms Q WAVE IN V1-V4] MODERATE T-WAVE ABNORMALITY, CONSIDER LATERAL ISCHEMIA [-0.1+ mV T-WAVE IN I/aVL/V5/V6] Compared to ECG 02/03/2019 15:57:18 Left-axis deviation now present T-wave abnormality now present Possible ischemia now present Myocardial infarct finding still present Electronically Signed On 07-17-2024 07:42:32 CDT by Louis Rivas M.D. [email or web address]
[2024-07-16 06:17] VITALS: BP 156/112; PULSE 117; RESP 24; TEMP 37; O2SAT 92; BMI 34.3
--- NOTE | 2024-07-16 06:19 | XR_ITS ---
WS: [id number] Portable AP upright chest, 07/16/2024 Clinical Data: dyspnea/cough Comparison: Two-view chest, 12/16/2022 Findings: No nodules, masses or effusions are seen. The heart is normal. The pulmonary vascularity is not increased. No pneumonia or pneumothorax is seen. The aortic arch shows calcification and mild tortuosity. XR/XR chest 1V portable [id number] Impression: Atherosclerosis.
[2024-07-16 06:25] VITALS: PULSE 116; RESP 20; O2SAT 96
[2024-07-16 06:35] VITALS: PULSE 109; RESP 16; O2SAT 100
[2024-07-16 06:35] LABS: Basophils # 0.1 10^3/uL (0.0-0.1); Basophils % 0.7 %; Eosinophils # 0.1 10^3/uL (0.0-0.8); Eosinophils % 1.1 %; Hematocrit 48.7 % (36-47); Lymphocytes # 1.7 10^3/uL (0.8-4.8); Lymphocytes % 24.9 %; Mean Corpuscular HGB Conc 33.9 g/dL (30-55); Mean Corpuscular Hemoglobin 34.9 pg (27-33); Mean Platelet Volume 10.4 fL (7.4-10.4); Monocytes # 0.6 10^3/uL (0.2-0.9); Neutrophils # 4.47 10^3/uL (1.8-7.7); Nucleated Red Blood Cells % 0 %; Platelet Count 186 10^3/cmm (157-399); Red Blood Count 4.73 10^6/uL (3.85-5.65); Red Cell Distribution Width 12.2 % (12.1-15.1); White Blood Count 6.99 10^3/uL (3.29-11.43)
[2024-07-16] MEDS: ipratropium-albuterol 3 mL Neb INHALATION ×2 (06:35→07:38)
--- NOTE | 2024-07-16 06:44 | ED_ITS ---
HPI - SOB/Dyspnea 2 General: Chief Complaint: Shortness of Breath/Dyspnea Stated Complaint: SOB/cough Time Seen by Provider: 07/16/24 06:19 History of Present Illness: HPI Narrative: 63-year-old [facility] complaints of a dry cough. Intermittently she states she has some mucus production. It has been going on for the last 4 to 5 days. No fevers. The child lives in her home had whooping cough another had RSV. Patient is a smoker has a history of COPD. She denies any hemoptysis denies any chest pain Associated symptoms: Reports chest congestion; Deny abdominal pain, chest pain or fever(s) Related Data Home Medications ?Medication ?Instructions ?Recorded ?Confirmed multivitamin 1 tab PO DAILY 05/06/2406/27 acetaminophen 325 mg tablet 650 mg PO QID PRN Fever Or Pain 07/16/24 07/16/24 (Tylenol) Previous Rx's ?Medication ?Instructions ?Recorded albuterol sulfate 90 mcg/actuation 1 puff inhalation Q 6H PRN 05/25/24 aerosol inhaler Shortness Of Breath #8.5 gra ms duloxetine 20 mg capsule,delayed 40 mg (2 x 20 mg) PO BID 90 days 05/25/24 release #360 caps losartan 50 mg tablet 50 mg PO DAILY 90 days #90 t abs 05/25/24 metoprolol succinate 100 mg 100 mg PO DAILY 90 days #9 0 tabs 05/25/24 tablet,extended release 24 hr trazodone 50 mg tablet 25 mg (1/2 x 50 mg) PO .at b edtime 05/25/24 90 days #90 tabs pantoprazole 40 mg tablet,delayed 40 mg PO BID #60 tab s 07/05/24 release ipratropium 0.5 mg-albuterol 3 mg 3 ml inhalation Q4H PRN shortness 07/16/24 (2.5 mg base)/3 mL nebulization of breath or wheezing #90 mL soln Allergies Allergy/AdvReac Type Severity Reaction Status Date / Time propranolol Allergy tachycardia, Verified 05/25/24 13:50 SOB, sleepiness, lethargy sulfamethoxazole (From Allergy ALGY-Hives Verified 05/25/24 13:50 Bactrim) trimethoprim (From Bactrim) Allergy ALGY-Hives Verified 05/25/24 13:50 sertraline (From Zoloft) AdvReac Mild ADR-diarrhe Verified 05/25/24 13:50 a aspirin AdvReac ADR-NAUSEA Verified 05/25/24 13:50 Review of Systems 2 Const: Denies: fever(s) or chills Card: Denies: chest pain Resp: Reports: dyspnea, productive cough (Intermittently productive), wheezing and chest congestion GI: Denies: abdominal pain : Denies: dysuria, urinary frequency or urinary urgency Musc: Denies: neck pain or back pain Skin/Breast: Denies: rash PFSH ED 2 PFSH: Medical History Chronic sinus infection Lumbar degenerative disc disease COPD (chronic obstructive pulmonary disease) ANGELITA (obstructive sleep apnea) Insomnia Depression Chronic migraine Hypertension Surgical History H/O knee surgery H/O: hysterectomy H/O section S/P tonsillectomy and adenoidectomy S/P appendectomy Family History Other CAD (coronary artery disease) Cancer Familial hypercholesterolemia Hypertension Thyroid disease Denies family history of Diabetes Stroke Social History Smoking and tobacco/nicotine status: current every day tobacco/nicotine user cigarettes Packs smoked per day: 0.5 Alcohol intake: never Substance/Drug Use: never Current gender identity: Female Female Reproductive History: Spontaneous abortions: No Physical Exam 2 Const: GENERAL APPEARANCE: cooperative ORIENTATION/CONSCIOUSNESS: Yes awake, Yes oriented to person, Yes oriented to place and Yes oriented to time HENMT: COMMON NORMALS: normocephalic, atraumatic and hearing grossly normal bilaterally HEAD & SCALP: normocephalic and atraumatic Resp: COMMON NORMALS: normal respiratory effort, No retractions and No use of accessory muscles AUSCULTATION: wheezes Cardio: COMMON NORMALS: regular rate, regular rhythm and No murmurs present (Cardio) RATE: regular rate RHYTHM: regular rhythm GI: COMMON NORMALS: Soft to palpation and No hepatosplenomegaly present A USCULTATION: Yes normoactive bowel sounds PALPATION: Yes Soft to palpation, No Tenderness to palpation present (GI), No Guarding due to palpation present (GI) and Yes No hepatosplenomegaly present Extremity: COMMON NORMALS: normal to inspection, capillary refill normal, no clubbing, cyanosis or edema, no calf tenderness and no pedal edema Neuro: SENSORIUM/ORIENTATION: Yes oriented to person, Yes oriented to place and Yes oriented to time Skin: COMMON NORMALS: no rashes or lesions noted GENERAL SKIN EXAM: no rashes or lesions noted Course 2 Vital Signs: Vital signs: Vital Signs Temperature 98.6 F 07/16/24 06:17 Pulse Rate 111 H 07/16/24 07:40 Respiratory Rate 20 H 07/16/24 07:34 Blood Pressure 156/112 07/16/24 06:17 Pulse Oximetry 92 07/16/24 07:34 Oxygen Delivery Me thod Room Air 07/16/24 07:34 MDM - SOB/Dyspnea Medical Decision Making RSV positive. Symptoms likely exacerbated by underlying history of smoking and COPD. She did get improvement with albuterol ipratropium nebs however also made her a bit jittery and slightly tachycardic her sats are remaining stable. Changes on chest x-ray for viral pneumonitis. I do not believe at this point she has a secondary pneumonia. Patient declined steroids she has a nebulizer at home but has been years since she used it we did write her prescription for a new small-volume nebulizer as well as DuoNeb solution to use with it. Discussed with her the usual course of RSV. Will discharge her home have her follow-up with her doctor as needed, return to the emergency room if she has worsening symptoms Medical Records I reviewed the patient's medical records. Lab Data I reviewed the patient's lab results. 07/16/24 06:21 07/16/24 06:21 Labs/Radiology: Laboratory Results WBC 6.99 10^3/uL (3.29-11.43) 07/16/24 06:21 RBC 4.73 10^6/uL (3.85-5.65) 07/16/24 06:21 Hgb 16.50 g/dL (11.27-16.99) 07/16/24 06:21 Hct 48.7 % (36-47) H 07/16/24 06:21 MCV 103.0 fl (85-98) H 07/16/24 06:21 MCH 34.9 pg (27-33) H 07/16/24 06:21 MCHC 33.9 g/dL (30-55) 07/16/24 06:21 RDW 12.2 % (12.1-15.1) 07/16/24 06:21 Plt Count 186 10^3/cmm (157-399) 07/16/24 06:21 MPV 10.4 fL (7.4-10.4) 07/16/24 06:21 Neut % (Auto) 64.0 % 07/16/24 06:21 Lymph % (Auto) 24.9 % 07/16/24 06:21 [place] % (Auto) 9.0 % 07/16/24 06:21 Eos % (Auto) 1.1 % 07/16/24 06:21 Baso % (Auto) 0.7 % 07/16/24 06:21 Neut # (Auto) 4.47 10^3/uL (1.8-7.7) 07/16/24 06:21 Lymph # (Auto) 1.7 10^3/uL (0.8-4.8) 07/16/24 06:21 [place] # (Auto) 0.6 10^3/uL (0.2-0.9) 07/16/24 06:21 Eos # (Auto) 0.1 10^3/uL (0.0-0.8) 07/16/24 06:21 Baso # (Auto) 0.1 10^3/uL (0.0-0.1) 07/16/24 06:21 Nucleated RBC % (auto) 0 % 07/16/24 06:21 Nucleated RBCs # 0.0 /100WBC 07/16/24 06:21 Sodium 134 mmol/L (136-145) L 07/16/24 06:21 Potassium 3.6 mmol/L (3.5-5.1) 07/16/24 06:21 Chloride 96 mmol/L (98-107) L 07/16/24 06:21 Carbon Dioxide 25 mmol/L (22-29) 07/16/24 06:21 Anion Gap 16.6 (5-19) 07/16/24 06:21 BUN 10 mg/dL (8-23) 03/21/25 06:21 Creatinine 0.7 mg/dL (0.5-0.9) 07/16/24 06:21 GFR Calculation 84.0 mL/min (90-130) L 07/16/24 06:21 Glucose 125 mg/dL (65-115) H 07/16/24 06:21 Calculated Osmolality 279 mOsm/kg (285-295) L 07/16/24 06:21 Calcium 8.6 mg/dL (8.5-10.5) 07/16/24 06:21 Total Bilirubin 0.8 mg/dL (0.15-1.2) 07/16/24 06:21 AST 77 U/L (0-32) H 07/16/24 06:21 ALT 80 U/L (0-33) H 07/16/24 06:21 Alkaline Phosphatase 161 U/L (35-105) H 07/16/24 06:21 Total Protein 7.5 g/dL (6.6-8.7) 07/16/24 06:21 Albumin 3.9 g/dL (3.5-5.2) 07/16/24 06:21 Globulin 3.6 g/dL (1.3-4.6) 07/16/24 06:21 Influenza A (PCR) Negative (Negative) 07/16/24 06:21 Influenza Type B (PCR) Negative (Negative) 07/16/24 06:21 RSV (PCR) Positive (Negative) A 07/16/24 06:21 SARS-CoV-2 (PCR) Negative (Negative) 07/16/24 06:21 XR interpretation done by ED provider, pending radiology final review ED provider radiology interpretation(s): Chest x-ray no cardiomegaly findings consistent with RSV bronchiolitis some increased haziness at the right base smaller degree at the left no effusion Discharge Plan Discharge Patient Disposition: Home Clinical Impression: Respiratory syncytial virus (RSV) infection, Acute exacerbation of chronic obstructive airways disease Condition: Stable Prescriptions: New ipratropium-albuterol 0.5 mg-3 mg(2.5 mg base)/3 mL solution for nebulization 3 ml inhalation Q4H PRN (Reason: shortness of breath or wheezing) Qty: 90 0RF No Action duloxetine 20 mg capsule,delayed release(DR/EC) 40 mg PO BID 90 Days Qty: 360 2RF albuterol sulfate 90 mcg/actuation HFA aerosol inhaler 1 puff INHALATION Q6H PRN (Reason: Shortness Of Breath) Qty: 8.5 5RF Rx Instructions: may adjust brand per cost metoprolol succinate 100 mg tablet extended release 24 hr 100 mg PO DAILY 90 Days Qty: 90 2RF losartan 50 mg tablet 50 mg PO DAILY 90 Days Qty: 90 2RF trazodone 50 mg tablet 25 mg PO .at bedtime 90 Days Qty: 90 2RF pantoprazole 40 mg tablet,delayed release (DR/EC) 40 mg PO BID Qty: 60 2RF acetaminophen [Tylenol] 325 mg Tablet 650 mg PO QID PRN (Reason: Fever Or Pain) multivitamin Tablet 1 tab PO DAILY Discharge Orders: Discharge ED (Routine); Ordered 07/16/24 Ordered By: Topher Bowles Other Ambulatory Orders: DME: Nebulizer with Neb Kit (Order) Location: None Selected Ordered By: Topher Bowles Referrals: Janie Dunne MD [Primary Care Provider] - Discharge Diet: Usual diet Discharge Activity: Resume usual activity Patient Instructions: RSV (Respiratory Syncytial Virus) Infection (ED), Opioid Safety, Pain Management Activity Restrictions/Additional Instructions: Thank you for choosing [facility] for your healthcare needs today. It is very important that you follow up as instructed or that you return to the Emergency Department should you have concerns or if your condition changes or worsens in any way. You were seen in the emergency room with complaints of cough. You tested positive for RSV which is consistent with your presenting symptoms. This is further complicated by underlying COPD. Recommend a steroid taper and using albuterol ipratropium bromide nebulizers as needed. There are no antibiotics or antivirals that are useful in treating RSV treatment is supportive care for symptoms. Unfortunately symptoms last up to 8 weeks with slow improvement over that time. Print Language: Tristanian Coding Level of Care Code ED Management Planner for Duane Rangel
[2024-07-16 06:47] LABS: Alanine Aminotransferase 80 U/L (0-33); Albumin Level 3.9 g/dL (3.5-5.2); Alkaline Phosphatase 161 U/L (35-105); Anion Gap 16.6 (5-19); Aspartate Amino Transferase 77 U/L (0-32); Blood Urea Nitrogen 10 mg/dL (8-23); Calcium 8.6 mg/dL (8.5-10.5); Carbon Dioxide 25 mmol/L (22-29); Chloride 96 mmol/L (98-107); Creatinine Clr Calc Pharmacy 76.4858; Globulin 3.6 g/dL (1.3-4.6); Glucose 125 mg/dL (65-115); Osmolality Calculated 279 mOsm/kg (285-295); Potassium 3.6 mmol/L (3.5-5.1); Sodium 134 mmol/L (136-145); Total Bilirubin 0.8 mg/dL (0.15-1.2); Total Protein 7.5 g/dL (6.6-8.7)
[2024-07-16 07:06] LABS: Influenza A NEGATIVE (Negative); Influenza B NEGATIVE (Negative); SARS-CoV-2 PCR NEGATIVE (Negative)
[2024-07-16 07:17] LABS: Respiratory Syncytial Virus Ce POSITIVE (Negative)
[2024-07-16 07:34] VITALS: PULSE 115; RESP 20; O2SAT 92
[2024-07-16 07:40] VITALS: PULSE 111
[2024-07-16] MEDS: ketorolac 30 mg/mL INJ IVP (08:07)
[2024-07-16 08:10] VITALS: BP 127/83; PULSE 119; O2SAT 91
== END 2024-07-16 08:10 | disposition home or self-care (01) ==
PROVIDERS: Emergency Provider Family Medicine; PCP Family Medicine
DX: J44.1 Chronic obstructive pulmonary disease with (acute) exacerbation (principal); B33.8 Other specified viral diseases; Z11.52 Encounter for screening for COVID-19; F17.210 Nicotine dependence, cigarettes, uncomplicated; I10 Essential (primary) hypertension
CPT/HCPCS: 71045; 80053; 85025; 87637; 93005; 94640; 96374; 99285; J1885; J9999

== ENCOUNTER → 2024-07-23 15:13 | Outpatient (BNVA) | payer MEDICARE, SELFPAY | PROVIDERS: PCP Family Medicine; Visit Provider Nurse Practitioner | DX: M54.9 Dorsalgia, unspecified (principal) | CPT/HCPCS: 81000 ==

== ENCOUNTER → 2024-08-30 13:21 | Outpatient (BNVA) | payer MEDICARE, SELFPAY | PROVIDERS: PCP Family Medicine; Visit Provider Family Medicine | DX: Z87.440 Personal history of urinary (tract) infections (principal); I10 Essential (primary) hypertension; F33.1 Major depressive disorder, recurrent, moderate; J41.0 Simple chronic bronchitis; L98.9 Disorder of the skin and subcutaneous tissue, unspecified; K27.9 Peptic ulcer, site unspecified, unspecified as acute or chronic, without hemorrhage or perforation; F51.01 Primary insomnia; E04.1 Nontoxic single thyroid nodule; R94.4 Abnormal results of kidney function studies; R74.8 Abnormal levels of other serum enzymes; J20.5 Acute bronchitis due to respiratory syncytial virus; N06.9 Isolated proteinuria with unspecified morphologic lesion | CPT/HCPCS: 81000 ==

== ENCOUNTER → 2024-08-31 14:35 | Outpatient (BNVA) | payer MEDICARE, SELFPAY | PROVIDERS: PCP Family Medicine; Referring Provider Family Medicine; Visit Provider Family Medicine | DX: R80.9 Proteinuria, unspecified (principal); Z87.440 Personal history of urinary (tract) infections | CPT/HCPCS: 81000; 87086 ==

== ENCOUNTER → 2024-10-22 14:47 | Outpatient (BNVA) | payer MEDICARE, SELFPAY | PROVIDERS: PCP Family Medicine; Visit Provider Nurse Practitioner | DX: M25.521 Pain in right elbow (principal); M25.531 Pain in right wrist | CPT/HCPCS: 73080; 73110 ==

== ENCOUNTER → 2024-11-30 13:29 | Outpatient (BNVA) | payer MEDICARE, SELFPAY | PROVIDERS: PCP Family Medicine; Visit Provider Family Medicine | DX: I10 Essential (primary) hypertension (principal); R94.4 Abnormal results of kidney function studies; R74.8 Abnormal levels of other serum enzymes | CPT/HCPCS: 80053; 80061; 84443 ==

== ENCOUNTER → 2024-12-08 14:13 | Outpatient (BNVA) | payer MEDICARE, SELFPAY | PROVIDERS: PCP Family Medicine; Visit Provider Podiatrist Foot & Ankle Surgery | DX: M79.672 Pain in left foot (principal); I73.9 Peripheral vascular disease, unspecified; L60.3 Nail dystrophy; M72.2 Plantar fascial fibromatosis | CPT/HCPCS: 11721; 73630; 99213 ==

== ENCOUNTER → 2024-12-23 14:37 | Outpatient (BNVA) | payer MEDICARE, SELFPAY | PROVIDERS: PCP Family Medicine; Referring Provider Family Medicine; Visit Provider Nurse Practitioner Family | DX: L21.8 Other seborrheic dermatitis (principal); L82.1 Other seborrheic keratosis; L72.0 Epidermal cyst; R20.8 Other disturbances of skin sensation; R60.0 Localized edema | CPT/HCPCS: 10060; 11102; 17110; 99204 ==